=== PATIENT | male | born 1960 | race Caucasian/White ===

== ENCOUNTER 2018-11-07 19:02 | Emergency (ER) | payer OTHER ==
[~2018-11-07] VITALS: Ht 172.7 cm; Wt 72.6 kg
[2018-11-07] MEDS ORDERED: PROZAC10 MG PO (19:12)
[2018-11-07] MEDS ORDERED: GABAPENTIN 100100 MG PO (19:12)
[2018-11-07 20:50] VITALS: BP 166/92
[2018-11-07] MEDS ORDERED: KEFLEX500 M1 PO (21:13)
== END 2018-11-07 20:52 | disposition home or self-care (01) ==
LOC: ER 19:02
DX: R04.0 Epistaxis (principal); F17.210 Nicotine dependence, cigarettes, uncomplicated